=== PATIENT | male | born 1940 | race Caucasian/White ===

== ENCOUNTER 2021-02-15 21:24 | Emergency (ER) | payer MEDICARE, BC ==
[~2021-02-15] VITALS: Ht 185.4 cm; Wt 124.0 kg
[~2021-02-15 21:24] MED LIST: ATEN25TA PO; MAGNESIUM CITRATE 300ML ORAL SOL PO ONE
--- NOTE | 2021-02-15 21:59 | NUR ---
PT STATES THAT HE HAS HAD CONSTIPATION 4 DAYS THAT 3 DAYS IS NORMAL THE 4TH DAY HE STARTS TO WORRY. PT TOOK SOME GEL CAPS 1000 AM, AND IS WORRIED. NO PAIN.
--- NOTE | 2021-02-15 22:20 | NUR ---
PT IN XRAY
[2021-02-15 22:30] LABS: BASOPHILS % (AUTO) 1 % (0-1); EOSINOPHILS % (AUTO) 2 % (1-7); LYMPHOCYTES % (AUTO) 20 % (22-44); MEAN CORPUSCULAR HEMOGLOBIN 31.2 pg (27.5-34.5); MEAN CORPUSCULAR HGB CONC 34.6 g/dL (33.2-36.2); MONOCYTES % (AUTO) 8 % (2-9); NEUTROPHILS % (AUTO) 70 % (42-75); PLATELET COUNT 235 x10^3/uL (130-400); RED BLOOD COUNT 5.05 x10^6/uL (4.38-5.82); RED CELL DISTRIBUTION WIDTH 13.4 % (9.4-14.8)
[2021-02-15 22:31] LABS: MD NO
[2021-02-15 22:43] LABS: ALBUMIN 3.8 g/dL (3.4-5.0); ANION GAP 8 mmol/L (5-15); CALCIUM 8.8 mg/dL (8.5-10.1); CHLORIDE 103 mmol/L (98-107)
--- NOTE | 2021-02-15 22:45 | NUR ---
PT BACK FROM XRAY.
[2021-02-15 22:47] LABS: ALANINE AMINOTRANSFERASE 42 U/L (12-78); ALKALINE PHOSPHATASE 64 U/L (45-117); BILIRUBIN,TOTAL 0.4 mg/dL (0.2-1.0); CREATININE 0.94 mg/dL (0.7-1.3); TOTAL PROTEIN 7.1 g/dL (6.4-8.2)
[2021-02-15] MEDS ORDERED: MAGNESIUM CITRATE 300ML ORAL SOL ONE (23:45)
[2021-02-16 00:07] VITALS: BP 152/80
--- NOTE | 2021-02-16 00:08 | NUR ---
Patient given discharge instructions and they have confirmed that they understand the instructions. Patient ambulatory with steady gait. No questions at time of discharge.
== END 2021-02-16 00:10 | disposition home or self-care (01) ==
LOC: ED 22:33
DX: K59.00 Constipation, unspecified (principal); I10 Essential (primary) hypertension; R10.9 Unspecified abdominal pain
CPT/HCPCS: 36415; 74021; 80053; 83690; 85025; 99284

== ENCOUNTER 2021-06-22 03:44 | Emergency (ER) | payer MEDICARE, BC ==
[~2021-06-22] VITALS: Ht 188 cm; Wt 120.7 kg
[~2021-06-22 03:44] MED LIST changes: -MAGNESIUM CITRATE 300ML ORAL SOL PO ONE
--- NOTE | 2021-06-22 04:16 | NUR ---
pt came into ed tonight due to constipation x6 days, reports taking stool softners and laxative with no success. pt reports this has been an increasing issue lately. pt abdomen is distended and firm with palpation, reports no longer passing gas and current ezio rectum pain at this time. nad, bed in lowest, rails engaged, call light on lap, wctm.
[2021-06-22] MEDS ORDERED: PINK LADY ENEMA 490 ML BOTTLE PR STA (05:26)
--- NOTE | 2021-06-22 06:30 | NUR ---
[facility] ENEMA ADMINISTERED TO PT, PT TOLERATED WELL, ASSISTED TO BEDSIDE COMMODE, PT ABLE TO PRODUCE MODERATE AMOUNT OF STOOL, ERP AWARE, RN ADMINISTERED [employer] [facility]EMA AND ASSISTED PT BACK TO COMMODE TO REMOVE MORE STOOL AT THIS TIME. PT ABLE TO TRANSFERRED STAND BY ASSIST. NAD, DENIES ADDITIONAL NEEDS AT THIS TIME. ATTEMPTING TO HAVE A SECOND BOWEL MOVEMENT CURRENTLY. WCTM.
[2021-06-22] MEDS ORDERED: MAGNESIUM CITRATE 300ML ORAL SOL ONE (07:07)
[2021-06-22 07:14] VITALS: BP 156/88
--- NOTE | 2021-06-22 07:14 | NUR ---
Patient/Caregiver given discharge instructions and they have confirmed that they understand the instructions. Patient ambulatory with steady gait. NAD, all questions answered appropriately, denies additional needs at this time. No personal belongings left in room after discharge.
[2021-06-22] MEDS ORDERED: MAGNESIUM CITRATE 300ML ORAL SOL PO ONE (07:30)
== END 2021-06-22 07:16 | disposition home or self-care (01) ==
LOC: ED 07:00
DX: K59.00 Constipation, unspecified (principal); R51.9 Headache, unspecified; I10 Essential (primary) hypertension
CPT/HCPCS: 74022; 99284